=== PATIENT | male | born 1950 | race African-American/Black ===

== ENCOUNTER 2021-09-04 13:33 | Inpatient (IN) | payer MEDICAID ==
[~2021-09-04] VITALS: Ht 172.7 cm; Wt 69.0 kg
[2021-09-04] MEDS ORDERED: LORAZEPAM 2MG/ML CPJ IV ONE (14:15)
[2021-09-04 14:36] LABS: BASOPHILS % 0.4 % (0.0-2.0); HEMATOCRIT. 31.8 % (42.0-52.0); HEMOGLOBIN. 10.4 g/dL (14.0-18.0); LYMPHOCYTES % 15.8 % (20.0-50.0); MEAN CORPUSCULAR HEMOGLOBIN 26.6 pg (28.0-32.0); MEAN PLATELET VOLUME 8.4 fl (7.4-10.4); MONOCYTES % 10.4 % (2.0-8.0); NEUTROPHILS % 73.4 % (40.0-76.0); PLATELET 135 x1000/uL (130-400); RED BLOOD CELL COUNT 3.92 mill/uL (4.7-6.1); RED CELL DISTRIBUTION WIDTH 17.5 % (11.6-14.6)
[2021-09-04 14:41] LABS: CHLORIDE 105 mEq/L (98-107)
[2021-09-04 14:51] LABS: ETHANOL BLOOD < 10 mg/dL
[2021-09-04 15:31] LABS: CLARITY URINE CLEAR (CLEAR); COLOR URINE DARK YELLOW (YELLOW); KETONES URINE NEGATIVE (NEGATIVE); LEUKOCYTE ESTERASE URINE NEGATIVE (NEGATIVE); NITRITE URINE NEGATIVE (NEGATIVE); OCCULT BLOOD URINE NEGATIVE (NEGATIVE); PROTEIN URINE TRACE (NEGATIVE); SPECIFIC GRAVITY URINE 1.012 (1.005-1.030)
[2021-09-04] MEDS ORDERED: SODIUM CHLORIDE 0.9% 1,000 ML IV ONE ×2 (15:45→18:30)
[2021-09-04] MEDS ORDERED: LACTULOSE 20G/30ML UDC PO ONE (15:45)
[2021-09-04 15:50] LABS: *AMPHETAMINES SCREEN URINE NEGATIVE (NEGATIVE); *BARBITURATES SCREEN URINE NEGATIVE (NEGATIVE); *BENZODIAZEPINES SCREEN URINE NEGATIVE (NEGATIVE); *COCAINE SCREEN URINE NEGATIVE (NEGATIVE); CANNABINOID URINE SCREEN NEGATIVE (NEGATIVE); METHADONE URINE SCREEN NEGATIVE (NEGATIVE); OPIATES URINE SCREEN PRESUMTIVE POSITIVE (NEGATIVE); PHENCYCLIDINE URINE SCREEN NEGATIVE (NEGATIVE)
[2021-09-04] MEDS ORDERED: LORAZEPAM 2MG/ML CPJ IV PRN (18:30)
[2021-09-04] MEDS ORDERED: VANCOMYCIN 1G PREMIX 200 ML IV ONE (18:30)
[2021-09-04] MEDS ORDERED: PIPERACILLIN/TAZ 3.375G PREMIX 50 ML IV ONE (18:30)
[2021-09-04] MEDS ORDERED: HYDROCODONE/ACETAMINOPHEN 5/325MG TABLET PO PRN (20:00)
[2021-09-04] MEDS ORDERED: LORAZEPAM 0.5MG TABLET PO PRN (20:00)
[2021-09-04] MEDS ORDERED: ACETAMINOPHEN 325MG TABLET PO PRN ×2 (20:00)
[2021-09-04] MEDS ORDERED: POTASSIUM CHLORIDE 20MEQ/PACKET PO NR (20:00)
[2021-09-04] MEDS ORDERED: CLONIDINE 0.1MG TABLET PO PRN (20:00)
[2021-09-04] MEDS ORDERED: IPRATROPIUM/ALBUTEROL 0.5-3(2.5)MG/3ML NEB HHN PRN (20:00)
[2021-09-04] MEDS ORDERED: ONDANSETRON HCL 4MG/2ML INJ IV PRN (20:00)
[2021-09-04] MEDS ORDERED: DOCUSATE SODIUM 100MG CAPSULE PO PRN (20:00)
[2021-09-04 20:36] LABS: HEPATITIS B SURFACE ANTIGEN NEGATIVE
[2021-09-04] MEDS ORDERED: LACTULOSE 300 ML in WATER FOR IRRIGATION,STERILE 700 ML IR NR (21:00)
[2021-09-04 22:00] VITALS: BP 151/89
[2021-09-04] MEDS ORDERED: NALOXONE HCL 0.4MG/ML VIAL IV PRN (22:45)
[2021-09-04] MEDS: SODIUM CHLORIDE 0.9% 1,000 ML IV SCH (23:29)
[2021-09-04] MEDS: LACTULOSE 20G/30ML UDC PO SCH (23:30)
[2021-09-05] VITALS: BP 157/84
[2021-09-05 04:00] VITALS: BP 155/89
[2021-09-05] MEDS: SODIUM CHLORIDE 0.9% 1,000 ML IV SCH ×2 (06:00→16:00)
[2021-09-05] MEDS: LACTULOSE 20G/30ML UDC PO SCH (06:45)
[2021-09-05 08:00] VITALS: BP 179/100
[2021-09-05 09:02] LABS: BASOPHILS % 0.7 % (0.0-2.0); EOSINOPHILS % 0.2 % (0.0-5.0); HEMATOCRIT. 35.2 % (42.0-52.0); HEMOGLOBIN. 11.3 g/dL (14.0-18.0); LYMPHOCYTES % 16.5 % (20.0-50.0); MEAN CORPUSCULAR HEMOGLOBIN 26.4 pg (28.0-32.0); MEAN CORPUSCULAR VOLUME 82.2 fL (80.0-94.0); MEAN PLATELET VOLUME 8.1 fl (7.4-10.4); MONOCYTES % 8.7 % (2.0-8.0); NEUTROPHILS % 73.9 % (40.0-76.0); PLATELET 106 x1000/uL (130-400); RED BLOOD CELL COUNT 4.28 mill/uL (4.7-6.1); RED CELL DISTRIBUTION WIDTH 17.8 % (11.6-14.6)
[2021-09-05 09:08] LABS: CHLORIDE 112 mEq/L (98-107)
[2021-09-05 12:00] VITALS: BP 152/99
[2021-09-05 16:00] VITALS: BP 161/100
[2021-09-05] MEDS ORDERED: LACTULOSE 300 ML in WATER FOR IRRIGATION,STERILE 700 ML IR SCH ×2 (17:30→19:00)
[2021-09-05] MEDS: METOCLOPRAMIDE HCL 10MG/2ML VIAL IV SCH (18:35)
[2021-09-05 19:35] LABS: INR 1.3; PROTHROMBIN TIME 13.5 sec (9.6-11.0)
[2021-09-05 20:00] VITALS: BP 149/94
[2021-09-06] VITALS (7 sets, daily range): BP systolic 155–187; BP diastolic 72–87
[2021-09-06] MEDS: SODIUM CHLORIDE 0.9% 1,000 ML IV SCH ×3 (00:52→20:00)
[2021-09-06] MEDS: METOCLOPRAMIDE HCL 10MG/2ML VIAL IV SCH ×5 (00:52→23:40)
[2021-09-06 06:23] LABS: INR 1.3
[2021-09-06 06:26] LABS: BASOPHILS % 0.2 % (0.0-2.0); EOSINOPHILS % 0.1 % (0.0-5.0); HEMATOCRIT. 34.6 % (42.0-52.0); HEMOGLOBIN. 11.6 g/dL (14.0-18.0); LYMPHOCYTES % 12.9 % (20.0-50.0); MEAN CORPUSCULAR HEMOGLOBIN 27.4 pg (28.0-32.0); MEAN CORPUSCULAR VOLUME 81.9 fL (80.0-94.0); MEAN PLATELET VOLUME 7.9 fl (7.4-10.4); MONOCYTES % 5.9 % (2.0-8.0); NEUTROPHILS % 80.9 % (40.0-76.0); PLATELET 138 x1000/uL (130-400); RED BLOOD CELL COUNT 4.22 mill/uL (4.7-6.1)
[2021-09-06 06:30] LABS: CHLORIDE 109 mEq/L (98-107)
[2021-09-06] MEDS ORDERED: POTASSIUM CHLORIDE INJ 40 MEQ in DEXT 5% WATER 250 ML IV ONE (08:45)
[2021-09-06] MEDS: KCL 20MEQ/100ML PREMIX 100 ML IV SCH ×4 (10:36→23:39)
[2021-09-06] MEDS: LACTULOSE 20G/30ML UDC PO SCH ×2 (10:37→18:07)
[2021-09-06] MEDS ORDERED: POTASSIUM CHLORIDE 20MEQ/PACKET PO SCH (13:00)
[2021-09-06] MEDS: HYDRALAZINE 20MG/ML VIAL IV PRN (15:20)
[2021-09-06] MEDS: RIFAXIMIN 550 MG TABLET PO SCH (20:05)
[2021-09-07] VITALS: BP 148/79
[2021-09-07] MEDS: LACTULOSE 20G/30ML UDC PO SCH ×4 (03:00→17:39)
[2021-09-07 04:00] VITALS: BP 172/73
[2021-09-07] MEDS: METOCLOPRAMIDE HCL 10MG/2ML VIAL IV SCH ×3 (05:10→16:32)
[2021-09-07] MEDS: HYDRALAZINE 20MG/ML VIAL IV PRN ×3 (05:11→22:23)
[2021-09-07 07:47] LABS: BASOPHILS % 0.3 % (0.0-2.0); EOSINOPHILS % 0.2 % (0.0-5.0); HEMATOCRIT. 33.2 % (42.0-52.0); LYMPHOCYTES % 22.2 % (20.0-50.0); MEAN CORPUSCULAR HEMOGLOBIN 26.7 pg (28.0-32.0); MEAN CORPUSCULAR VOLUME 80.1 fL (80.0-94.0); MEAN PLATELET VOLUME 7.6 fl (7.4-10.4); MONOCYTES % 7.6 % (2.0-8.0); NEUTROPHILS % 69.7 % (40.0-76.0); PLATELET 134 x1000/uL (130-400); RED BLOOD CELL COUNT 4.14 mill/uL (4.7-6.1); RED CELL DISTRIBUTION WIDTH 17.9 % (11.6-14.6)
[2021-09-07 07:53] LABS: CHLORIDE 112 mEq/L (98-107)
[2021-09-07 07:54] LABS: INR 1.4; PROTHROMBIN TIME 14.7 sec (9.6-11.0)
[2021-09-07 07:58] VITALS: BP 178/83
[2021-09-07] MEDS: RIFAXIMIN 550 MG TABLET PO SCH ×2 (08:23→22:22)
[2021-09-07] MEDS: SODIUM CHLORIDE 0.9% 1,000 ML IV SCH ×2 (08:23→16:33)
[2021-09-07] MEDS ORDERED: POTASSIUM CHLORIDE INJ 40 MEQ in DEXT 5% WATER 250 ML IV ONE (09:45)
[2021-09-07] MEDS ORDERED: POTASSIUM CHLORIDE 20MEQ/PACKET PO NR (10:00)
[2021-09-07] MEDS: KCL 20MEQ/100ML X 2 FOR TOTAL KCL 40MEQ/200ML IV SCH ×2 (10:52→12:47)
[2021-09-07 11:44] VITALS: BP 167/86
[2021-09-07] MEDS: CLONIDINE 0.1MG TABLET PO PRN (11:51)
[2021-09-07 15:31] VITALS: BP 154/70
[2021-09-07 20:00] VITALS: BP 187/93
[2021-09-07] MEDS: PROPRANOLOL HCL 10MG TABLET PO SCH (22:22)
[2021-09-08] VITALS (7 sets, daily range): BP systolic 152–186; BP diastolic 82–93
[2021-09-08] MEDS: METOCLOPRAMIDE HCL 10MG/2ML VIAL IV SCH ×4 (00:56→16:40)
[2021-09-08] MEDS: LACTULOSE 20G/30ML UDC PO SCH ×2 (03:00→08:21)
[2021-09-08] MEDS: SODIUM CHLORIDE 0.9% 1,000 ML IV SCH (07:08)
[2021-09-08 08:20] LABS: INR 1.6; PROTHROMBIN TIME 16.9 sec (9.6-11.0)
[2021-09-08] MEDS: PROPRANOLOL HCL 10MG TABLET PO SCH ×2 (08:21→22:21)
[2021-09-08] MEDS: RIFAXIMIN 550 MG TABLET PO SCH ×2 (08:21→22:22)
[2021-09-08 08:30] LABS: BASOPHILS % 0.2 % (0.0-2.0); EOSINOPHILS % 1.1 % (0.0-5.0); HEMATOCRIT. 29.2 % (42.0-52.0); HEMOGLOBIN. 9.8 g/dL (14.0-18.0); LYMPHOCYTES % 25.1 % (20.0-50.0); MEAN CORPUSCULAR HEMOGLOBIN 27.2 pg (28.0-32.0); MEAN CORPUSCULAR VOLUME 81.2 fL (80.0-94.0); MEAN PLATELET VOLUME 7.5 fl (7.4-10.4); MONOCYTES % 9.7 % (2.0-8.0); NEUTROPHILS % 63.9 % (40.0-76.0); PLATELET 100 x1000/uL (130-400); RED CELL DISTRIBUTION WIDTH 18.1 % (11.6-14.6)
[2021-09-08 09:07] LABS: CHLORIDE 120 mEq/L (98-107)
[2021-09-08] MEDS ORDERED: POTASSIUM CHLORIDE INJ 40 MEQ in DEXT 5% WATER 250 ML IV ONE (09:45)
[2021-09-08] MEDS ORDERED: POTASSIUM CHLORIDE 20MEQ/PACKET PO NR (09:45)
[2021-09-08] MEDS: KCL 20MEQ/100ML X 2 FOR TOTAL KCL 40MEQ/200ML IV SCH ×2 (10:51→12:30)
[2021-09-08] MEDS: HYDRALAZINE 20MG/ML VIAL IV PRN (11:28)
[2021-09-08] MEDS: SODIUM CHL 0.45% + KCL 20MEQ/L 1,000 ML IV SCH ×2 (14:16→22:22)
[2021-09-08] MEDS ORDERED: POTASSIUM CHLORIDE 20MEQ TABLET SR PO SCH (21:00)
[2021-09-08] MEDS: CLONIDINE 0.1MG TABLET PO PRN (22:23)
[2021-09-09] VITALS: BP 158/82
[2021-09-09] MEDS: METOCLOPRAMIDE HCL 10MG/2ML VIAL IV SCH ×4 (00:38→16:21)
[2021-09-09 04:00] VITALS: BP 137/67
[2021-09-09 07:54] VITALS: BP 165/89
[2021-09-09 07:57] LABS: BASOPHILS % 0.4 % (0.0-2.0); EOSINOPHILS % 0.9 % (0.0-5.0); HEMATOCRIT. 34.4 % (42.0-52.0); HEMOGLOBIN. 11.4 g/dL (14.0-18.0); LYMPHOCYTES % 29.8 % (20.0-50.0); MEAN CORPUSCULAR HEMOGLOBIN 26.8 pg (28.0-32.0); MEAN CORPUSCULAR VOLUME 80.8 fL (80.0-94.0); MEAN PLATELET VOLUME 7.1 fl (7.4-10.4); MONOCYTES % 7.6 % (2.0-8.0); NEUTROPHILS % 61.3 % (40.0-76.0); PLATELET 110 x1000/uL (130-400); RED BLOOD CELL COUNT 4.26 mill/uL (4.7-6.1); RED CELL DISTRIBUTION WIDTH 18.3 % (11.6-14.6)
[2021-09-09 07:59] LABS: INR 1.5; PROTHROMBIN TIME 15.6 sec (9.6-11.0)
[2021-09-09 08:06] LABS: CHLORIDE 110 mEq/L (98-107)
[2021-09-09 08:13] LABS: PHOSPHORUS 2.4 mg/dL (2.5-4.9)
[2021-09-09] MEDS: CLONIDINE 0.1MG TABLET PO PRN (08:20)
[2021-09-09] MEDS: RIFAXIMIN 550 MG TABLET PO SCH ×2 (08:20→21:59)
[2021-09-09] MEDS: PROPRANOLOL HCL 10MG TABLET PO SCH ×2 (08:20→21:59)
[2021-09-09] MEDS: SODIUM CHLORIDE 0.45% 1,000 ML IV SCH ×2 (10:28→23:05)
[2021-09-09] MEDS ORDERED: MAGNESIUM 4 G PREMIX 100 ML IV NR (11:00)
[2021-09-09] MEDS ORDERED: POTASSIUM PHOS,M-BASIC-D-BASIC 30 MMOL in DEXT 5% WATER 500 ML IV NR (11:00)
[2021-09-09 11:27] VITALS: BP 155/84
[2021-09-09 15:29] VITALS: BP 165/94
[2021-09-09] MEDS: HYDRALAZINE 20MG/ML VIAL IV PRN (16:20)
[2021-09-09] MEDS: ZINC OXIDE 20% OINT 30GM TOP SCH (18:10)
[2021-09-09 20:00] VITALS: BP 148/69
[2021-09-09] MEDS: SODIUM CHL 0.45% + KCL 20MEQ/L 1,000 ML IV SCH (21:57)
[2021-09-10] VITALS (8 sets, daily range): BP systolic 129–183; BP diastolic 64–91
[2021-09-10] MEDS: METOCLOPRAMIDE HCL 10MG/2ML VIAL IV SCH ×4 (00:47→17:46)
[2021-09-10 08:41] LABS: CHLORIDE 105 mEq/L (98-107)
[2021-09-10 08:49] LABS: PHOSPHORUS 2.9 mg/dL (2.5-4.9)
[2021-09-10 08:51] LABS: BASOPHILS % 0.3 % (0.0-2.0); EOSINOPHILS % 0.6 % (0.0-5.0); HEMATOCRIT. 35.3 % (42.0-52.0); HEMOGLOBIN. 11.6 g/dL (14.0-18.0); LYMPHOCYTES % 22.5 % (20.0-50.0); MEAN CORPUSCULAR HEMOGLOBIN 26.5 pg (28.0-32.0); MEAN CORPUSCULAR VOLUME 80.8 fL (80.0-94.0); MEAN PLATELET VOLUME 7.4 fl (7.4-10.4); MONOCYTES % 7.7 % (2.0-8.0); NEUTROPHILS % 68.9 % (40.0-76.0); PLATELET 113 x1000/uL (130-400); RED BLOOD CELL COUNT 4.37 mill/uL (4.7-6.1); RED CELL DISTRIBUTION WIDTH 18.3 % (11.6-14.6)
[2021-09-10] MEDS: RIFAXIMIN 550 MG TABLET PO SCH ×2 (09:01→21:47)
[2021-09-10] MEDS: PROPRANOLOL HCL 10MG TABLET PO SCH ×2 (09:02→21:00)
[2021-09-10] MEDS: ZINC OXIDE 20% OINT 30GM TOP SCH ×2 (09:03→17:47)
[2021-09-10 09:11] LABS: INR 1.4
[2021-09-10] MEDS: SODIUM CHLORIDE 0.9% 1,000 ML IV SCH (11:52)
[2021-09-10] MEDS: CLONIDINE 0.1MG TABLET PO PRN (11:58)
[2021-09-10 14:34] LABS: AMYLASE 199 IU/L (25-115)
[2021-09-10] MEDS: HYDRALAZINE 20MG/ML VIAL IV PRN (17:47)
[2021-09-11] VITALS: BP 141/62
[2021-09-11] MEDS: METOCLOPRAMIDE HCL 10MG/2ML VIAL IV SCH ×4 (00:20→16:57)
[2021-09-11 04:00] VITALS: BP 163/79
[2021-09-11] MEDS: SODIUM CHLORIDE 0.9% 1,000 ML IV SCH (06:32)
[2021-09-11 06:45] LABS: BASOPHILS % 0.2 % (0.0-2.0); EOSINOPHILS % 1.2 % (0.0-5.0); HEMATOCRIT. 33.5 % (42.0-52.0); HEMOGLOBIN. 11.2 g/dL (14.0-18.0); LYMPHOCYTES % 20.3 % (20.0-50.0); MEAN CORPUSCULAR HEMOGLOBIN 26.9 pg (28.0-32.0); MEAN CORPUSCULAR VOLUME 80.4 fL (80.0-94.0); MEAN PLATELET VOLUME 7.7 fl (7.4-10.4); MONOCYTES % 9.7 % (2.0-8.0); NEUTROPHILS % 68.6 % (40.0-76.0); PLATELET 112 x1000/uL (130-400); RED BLOOD CELL COUNT 4.16 mill/uL (4.7-6.1); RED CELL DISTRIBUTION WIDTH 17.8 % (11.6-14.6)
[2021-09-11 06:54] LABS: CHLORIDE 105 mEq/L (98-107)
[2021-09-11 08:00] VITALS: BP 168/84
[2021-09-11] MEDS ORDERED: POTASSIUM CHLORIDE 20MEQ/PACKET PO NR (09:00)
[2021-09-11] MEDS: PROPRANOLOL HCL 10MG TABLET PO SCH (09:00)
[2021-09-11] MEDS: RIFAXIMIN 550 MG TABLET PO SCH (09:27)
[2021-09-11] MEDS: HYDRALAZINE 20MG/ML VIAL IV PRN (09:28)
[2021-09-11] MEDS ORDERED: LACT10SO3 MT (10:19)
[2021-09-11] MEDS ORDERED: PROP10TA10 PO (10:19)
[2021-09-11 12:00] VITALS: BP 144/90
[2021-09-11 16:00] VITALS: BP 152/79
[2021-09-11 16:14] VITALS: BP 144/90
[2021-09-11] MEDS ORDERED: CALCIUM CARBONATE 500MG TABLET CHEW PO NR (17:00)
[2021-09-11] MEDS: ZINC OXIDE 20% OINT 30GM TOP SCH (17:10)
== END 2021-09-11 19:05 | disposition home or self-care (01) | DRG 279 ==
LOC: ER 13:33 → EDBEDREQ 15:37 → 8WST 19:06 → EDBEDREQ 19:12 → EDBEDREQTM 19:12 → ENRESERV 20:01
PROVIDERS: ADMIT Internal Medicine; ATTEND Internal Medicine
DX: K72.90 Hepatic failure, unspecified without coma (principal); E43 Unspecified severe protein-calorie malnutrition; K85.90 Acute pancreatitis without necrosis or infection, unspecified; D69.6 Thrombocytopenia, unspecified; D68.9 Coagulation defect, unspecified; N17.9 Acute kidney failure, unspecified; C25.9 Malignant neoplasm of pancreas, unspecified; E87.0 Hyperosmolality and hypernatremia; E83.51 Hypocalcemia; K56.7 Ileus, unspecified; B19.20 Unspecified viral hepatitis C without hepatic coma; K74.60 Unspecified cirrhosis of liver; I10 Essential (primary) hypertension; D64.9 Anemia, unspecified; D72.821 Monocytosis (symptomatic); E87.6 Hypokalemia; E88.09 Other disorders of plasma-protein metabolism, not elsewhere classified; K76.6 Portal hypertension; E86.9 Volume depletion, unspecified; N28.1 Cyst of kidney, acquired; Z90.49 Acquired absence of other specified parts of digestive tract; Z82.49 Family history of ischemic heart disease and other diseases of the circulatory system; Z68.23 Body mass index [BMI] 23.0-23.9, adult
CPT/HCPCS: 36415; 71045; 74018; 74177; 76700; 80048; 80053; 80076; 80305; 80320; 81003; 82140; 82150; 82330; 83605; 83735; 84100; 84132; 84145; 85025; 86301; 86705; 86709; 86803; 87340; 87493; 93005; 97162; 99291; J0360; J2060; J2543; J2765; J3370; J3475; J3480; J3490; J7030; J7060; G0480

== ENCOUNTER 2023-12-16 18:42 | Inpatient (IN) | payer MEDICARE, MEDICAID ==
[~2023-12-16] VITALS: Ht 180.3 cm; Wt 67.6 kg
[~2023-12-16 18:42] MED LIST: LACT10SO3 MT; PROP10TA10 PO
[2023-12-16 18:45] VITALS: O2SAT 97
[2023-12-16] MEDS: OLANZAPINE 10 MG/VIAL IM ONE (19:18)
[2023-12-16] MEDS: LORAZEPAM 2MG/ML INJ IM ONE (19:21)
[2023-12-16] MEDS: SODIUM CHLORIDE 0.9% 1,000 ML IV ONE (20:45)
[2023-12-16 20:51] LABS: CARBON DIOXIDE 23 mEq/L (21-32); CHLORIDE 112 mEq/L (98-107); SODIUM 141 mEq/L (136-145)
[2023-12-16 20:52] LABS: CALCIUM 8.1 mg/dL (8.7-10.4)
[2023-12-16 20:55] LABS: BASOPHILS % 0.6 % (0.0-2.0); DIFFERENTIAL COMMENT 0; EOSINOPHILS % 0.3 % (0.0-5.0); HEMATOCRIT. 23.6 % (42.0-52.0); HEMOGLOBIN. 7.1 g/dL (14.0-18.0); LYMPHOCYTES % 19.3 % (20.0-50.0); MEAN CORPUSCULAR HEMOGLOBIN 21.5 pg (28.0-32.0); MEAN CORPUSCULAR VOLUME 71.5 fL (80.0-94.0); MEAN PLATELET VOLUME 8.5 fl (7.4-10.4); MONOCYTES % 8.5 % (2.0-8.0); NEUTROPHILS % 71.3 % (40.0-76.0); PLATELET 70 x1000/uL (130-400); WHITE BLOOD COUNT 5.4 x1000/uL (4.5-11.0)
[2023-12-16 20:56] LABS: CREATININE 1.6 mg/dL (0.6-1.3)
[2023-12-16 20:57] LABS: AMMONIA 78 uMol/L (<32); GLUCOSE 111 mg/dL (70-105); INR 1.2; PROTHROMBIN TIME 13.5 sec (9.6-11.0); UREA NITROGEN BLOOD 15 mg/dL (9-23)
[2023-12-16 20:58] LABS: ALANINE AMINOTRANSFERASE 31 IU/L (10-49); ALBUMIN 2.9 g/dL (3.2-4.8); ASPARTATE AMINOTRANSFERASE 53 IU/L (<34); LACTIC ACID 2.6 mmol/L (0.4-2.0); TROPONIN I HIGH SENSITIVITY 13 ng/L (3.0-53)
[2023-12-16 20:59] LABS: BILIRUBIN DIRECT 0.9 mg/dL (<=3.0); BILIRUBIN TOTAL 1.7 mg/dL (0.1-1.0); CREATINE KINASE 442 IU/L (46-171); ETHANOL BLOOD < 10 mg/dL (<10); PROTEIN TOTAL 7.7 g/dL (6.0-8.3)
[2023-12-16] MEDS ORDERED: ACETAMINOPHEN 325MG TABLET PO PRN ×2 (22:00)
[2023-12-16] MEDS ORDERED: DOCUSATE SODIUM 100MG CAPSULE PO PRN (22:00)
[2023-12-16] MEDS ORDERED: GUAIFENESIN 200MG/10ML SUGAR FREE UDC PO PRN (22:00)
[2023-12-16] MEDS ORDERED: ONDANSETRON HCL 4MG/2ML INJ IV PRN (22:00)
[2023-12-16] MEDS ORDERED: CLONIDINE 0.1MG TABLET PO PRN (22:00)
[2023-12-16] MEDS ORDERED: IPRATROPIUM/ALBUTEROL 0.5-3(2.5)MG/3ML NEB HHN PRN (22:00)
[2023-12-16] MEDS ORDERED: MAGNESIUM/ALUMINUM HYDROXIDE/SIMETHICONE 30ML UDC PO PRN (22:00)
[2023-12-16] MEDS: PIPERACILLIN/TAZO 3.375G/50ML 50 ML IV ONE (22:01)
[2023-12-16] MEDS: SODIUM CHLORIDE 0.9% 1000ML BAG (SEPSIS BOLUS) IV ONE (22:26)
[2023-12-16] MEDS: PROPRANOLOL HCL 10MG TABLET PO SCH (22:30)
[2023-12-16] MEDS: PANTOPRAZOLE SODIUM 40 MG/VIAL IV SCH (23:56)
[2023-12-17] MEDS: LORAZEPAM 2MG/ML INJ IV PRN (01:30)
[2023-12-17 01:44] LABS: CLARITY URINE CLEAR (CLEAR); COLOR URINE YELLOW (YELLOW); GLUCOSE URINE NEGATIVE (NEGATIVE); KETONES URINE NEGATIVE (NEGATIVE); LEUKOCYTE ESTERASE URINE NEGATIVE (NEGATIVE); NITRITE URINE NEGATIVE (NEGATIVE); OCCULT BLOOD URINE NEGATIVE (NEGATIVE); PROTEIN URINE NEGATIVE (NEGATIVE); SPECIFIC GRAVITY URINE 1.009 (1.005-1.030)
[2023-12-17] MEDS: DEXT 5%/0.45% NACL 1000ML 1,000 ML IV SCH (02:00)
[2023-12-17 02:10] LABS: *AMPHETAMINES SCREEN URINE NEGATIVE (NEGATIVE); *BARBITURATES SCREEN URINE NEGATIVE (NEGATIVE); *BENZODIAZEPINES SCREEN URINE NEGATIVE (NEGATIVE); *COCAINE SCREEN URINE NEGATIVE (NEGATIVE); CANNABINOID URINE SCREEN NEGATIVE (NEGATIVE); ECSTASY MDMA SCREEN URINE NEGATIVE (NEGATIVE); METHADONE URINE SCREEN NEGATIVE (NEGATIVE); OPIATES URINE SCREEN PRESUMPTIVE POSITIVE (NEGATIVE); PHENCYCLIDINE URINE SCREEN NEGATIVE (NEGATIVE)
[2023-12-17 06:47] LABS: CARBON DIOXIDE 23 mEq/L (21-32); CHLORIDE 115 mEq/L (98-107); POTASSIUM 3.7 mEq/L (3.5-5.1); SODIUM 142 mEq/L (136-145)
[2023-12-17 06:48] LABS: CALCIUM 7.5 mg/dL (8.7-10.4)
[2023-12-17 06:52] LABS: CREATININE 1.4 mg/dL (0.6-1.3); GLUCOSE 89 mg/dL (70-105); IRON 19 ug/dL (65-175)
[2023-12-17 06:53] LABS: ALANINE AMINOTRANSFERASE 27 IU/L (10-49); ALBUMIN 2.6 g/dL (3.2-4.8); ASPARTATE AMINOTRANSFERASE 50 IU/L (<34); BILIRUBIN DIRECT 0.8 mg/dL (<=3.0); TRIGLYCERIDE 55 mg/dL (0-150); UREA NITROGEN BLOOD 14 mg/dL (9-23)
[2023-12-17 06:54] LABS: ALBUMIN 2.6 g/dL (3.2-4.8); BILIRUBIN TOTAL 1.4 mg/dL (0.1-1.0); CHOLESTEROL 78 mg/dL (<200); CREATINE KINASE 474 IU/L (46-171); LDL CHOLESTEROL 22 mg/dL (5-100); PROTEIN TOTAL 6.8 g/dL (6.0-8.3)
[2023-12-17 06:55] LABS: HDL CHOLESTEROL 33 mg/dL (>55); PHOSPHORUS 3.1 mg/dL (2.5-4.9); TOTAL IRON BINDING CAPACITY 295 ug/dl (250-425)
[2023-12-17 06:57] LABS: FOLIC ACID (FOLATE) SERUM 11.54 ng/mL (>5.38); THYROID STIMULATING HORMONE 6.25 uIU/mL (0.55-4.78); VITAMIN B12 SERUM 988 pg/mL (211-911)
[2023-12-17] MEDS: LACTULOSE 20G/30ML UDC PO SCH (07:06)
[2023-12-17 07:21] LABS: BASOPHILS % 0.7 % (0.0-2.0); DIFFERENTIAL COMMENT 0; EOSINOPHILS % 0.5 % (0.0-5.0); LYMPHOCYTES % 25.9 % (20.0-50.0); MEAN CORPUSCULAR HEMOGLOBIN 21.9 pg (28.0-32.0); MEAN CORPUSCULAR HGB CONC 30.3 g/dL (31.0-37.0); MEAN CORPUSCULAR VOLUME 72.1 fL (80.0-94.0); MEAN PLATELET VOLUME 8.6 fl (7.4-10.4); MONOCYTES % 12.1 % (2.0-8.0); NEUTROPHILS % 60.8 % (40.0-76.0); PLATELET 65 x1000/uL (130-400); RED BLOOD CELL COUNT 2.94 mill/uL (4.7-6.1); RED CELL DISTRIBUTION WIDTH 19.7 % (11.6-14.6)
[2023-12-17 07:28] LABS: HEMOGLOBIN. 6.4 g/dL (14.0-18.0)
[2023-12-17 07:29] LABS: HEMATOCRIT. 21.2 % (42.0-52.0)
[2023-12-17] MEDS: SPIRONOLACTONE 50MG TABLET PO SCH (09:00)
[2023-12-17] MEDS: RIFAXIMIN 550 MG TABLET PO SCH (09:00)
[2023-12-17] MEDS ORDERED: DIPHENHYDRAMINE 25MG CAPSULE PO NR (14:28)
[2023-12-17] MEDS: MAGNESIUM 1 G PREMIX 100 ML IV NR (14:41)
[2023-12-17 16:39] LABS: CREATINE KINASE 570 IU/L (46-171)
[2023-12-17 16:57] LABS: HEMATOCRIT 24.2 % (42.0-52.0)
[2023-12-17 18:54] VITALS: BP 154/81; PULSE 78; RESP 20; TEMP 38.11416; O2SAT 96
[2023-12-17 20:00] VITALS: BP 134/77; PULSE 85; RESP 19; TEMP 36.5848
[2023-12-18] VITALS (9 sets, daily range): BP systolic 130–157; BP diastolic 64–81; PULSE 60–87; RESP 18–20; TEMP 36.22512–36.9474; O2SAT 96–100
[2023-12-18 07:05] LABS: BASOPHILS % 0.6 % (0.0-2.0); DIFFERENTIAL COMMENT 0; EOSINOPHILS % 0.5 % (0.0-5.0); HEMATOCRIT. 24.7 % (42.0-52.0); HEMOGLOBIN. 7.6 g/dL (14.0-18.0); LYMPHOCYTES % 24.2 % (20.0-50.0); MEAN CORPUSCULAR HEMOGLOBIN 22.5 pg (28.0-32.0); MEAN CORPUSCULAR HGB CONC 30.6 g/dL (31.0-37.0); MEAN CORPUSCULAR VOLUME 73.6 fL (80.0-94.0); MEAN PLATELET VOLUME 8.3 fl (7.4-10.4); MONOCYTES % 9.8 % (2.0-8.0); NEUTROPHILS % 64.9 % (40.0-76.0); PLATELET 70 x1000/uL (130-400); RED BLOOD CELL COUNT 3.36 mill/uL (4.7-6.1); RED CELL DISTRIBUTION WIDTH 20.6 % (11.6-14.6)
[2023-12-18 07:18] LABS: AMMONIA 59 uMol/L (<32)
[2023-12-18 07:19] LABS: PHOSPHORUS 3.2 mg/dL (2.5-4.9)
[2023-12-18] MEDS: OCTREOTIDE 1,000 MCG in SODIUM CHLORIDE 0.9% 98 ML IV SCH ×2 (12:30→21:55)
[2023-12-18] MEDS ORDERED: LIDOCAINE HCL 1% 10 MG/ML 10ML VIAL ONE (13:41)
[2023-12-18] MEDS: BISACODYL 10MG SUPP PR NR (18:32)
[2023-12-18 18:53] LABS: CHLORIDE 115 mEq/L (98-107); SODIUM 141 mEq/L (136-145)
[2023-12-18 18:54] LABS: CARBON DIOXIDE 23 mEq/L (21-32)
[2023-12-18 18:55] LABS: CALCIUM 8.1 mg/dL (8.7-10.4)
[2023-12-18 18:59] LABS: CREATININE 1.2 mg/dL (0.6-1.3); GLUCOSE 84 mg/dL (70-105); UREA NITROGEN BLOOD 11 mg/dL (9-23)
[2023-12-19] VITALS: BP 143/71; PULSE 60; RESP 20; TEMP 36.55848; O2SAT 97
[2023-12-19 04:00] VITALS: BP 143/68; PULSE 59; RESP 20; TEMP 36.55848; O2SAT 98
[2023-12-19 06:43] LABS: BASOPHILS % 0.5 % (0.0-2.0); DIFFERENTIAL COMMENT 0; EOSINOPHILS % 0.1 % (0.0-5.0); HEMOGLOBIN. 8.3 g/dL (14.0-18.0); LYMPHOCYTES % 19.6 % (20.0-50.0); MEAN CORPUSCULAR VOLUME 74.3 fL (80.0-94.0); MEAN PLATELET VOLUME 8.6 fl (7.4-10.4); MONOCYTES % 8.2 % (2.0-8.0); NEUTROPHILS % 71.6 % (40.0-76.0); PLATELET 69 x1000/uL (130-400); RED BLOOD CELL COUNT 3.63 mill/uL (4.7-6.1); RED CELL DISTRIBUTION WIDTH 21.5 % (11.6-14.6); WHITE BLOOD COUNT 8.5 x1000/uL (4.5-11.0)
[2023-12-19 06:59] LABS: AMMONIA 49 uMol/L (<32)
[2023-12-19 07:02] LABS: CHLORIDE 115 mEq/L (98-107); POTASSIUM 4.3 mEq/L (3.5-5.1); SODIUM 141 mEq/L (136-145)
[2023-12-19 07:03] LABS: CALCIUM 7.8 mg/dL (8.7-10.4); CARBON DIOXIDE 21 mEq/L (21-32)
[2023-12-19 07:08] LABS: CREATININE 1.2 mg/dL (0.6-1.3); GLUCOSE 116 mg/dL (70-105); UREA NITROGEN BLOOD 14 mg/dL (9-23)
[2023-12-19 07:11] LABS: PHOSPHORUS 3.6 mg/dL (2.5-4.9)
[2023-12-19 08:00] VITALS: BP 153/69; PULSE 56; RESP 18; TEMP 36.33624; O2SAT 98
[2023-12-19 12:00] VITALS: BP 147/71; RESP 18; TEMP 36.33624; O2SAT 97
[2023-12-19 16:00] VITALS: BP 150/77; PULSE 58; RESP 18; TEMP 36.50292; O2SAT 98
[2023-12-19] MEDS: SPIRONOLACTONE 50MG TABLET PO SCH (18:58)
[2023-12-19] MEDS: IRON SUCROSE COMPLEX 100 MG/5 ML ML IV SCH (18:59)
[2023-12-19] MEDS: LACTULOSE 20G/30ML UDC PO NR (18:59)
[2023-12-19 20:00] VITALS: BP 147/81; PULSE 69; RESP 19; TEMP 36.22512; O2SAT 97
[2023-12-20] VITALS: BP 140/69; PULSE 59; RESP 20; TEMP 36.22512; O2SAT 97
[2023-12-20 04:00] VITALS: BP 160/70; PULSE 54; RESP 20; TEMP 36.55848; O2SAT 98
[2023-12-20 08:00] VITALS: BP 147/74; PULSE 59; RESP 20; TEMP 36.9474; O2SAT 98
[2023-12-20 10:37] LABS: HEMATOCRIT 27.8 % (42.0-52.0); HEMOGLOBIN 8.4 g/dL (14.0-18.0); MEAN CORPUSCULAR HEMOGLOBIN 22.9 pg (28.0-32.0); MEAN CORPUSCULAR HGB CONC 30.3 g/dL (31.0-37.0); MEAN CORPUSCULAR VOLUME 75.5 fL (80.0-94.0); PLATELET 64 x1000/uL (130-400); RED BLOOD CELL COUNT 3.68 mill/uL (4.7-6.1); RED CELL DISTRIBUTION WIDTH 21.7 % (11.6-14.6); WHITE BLOOD COUNT 8.9 x1000/uL (4.5-11.0)
[2023-12-20 10:46] LABS: CHLORIDE 113 mEq/L (98-107); POTASSIUM 3.9 mEq/L (3.5-5.1); SODIUM 142 mEq/L (136-145)
[2023-12-20 10:47] LABS: CARBON DIOXIDE 22 mEq/L (21-32)
[2023-12-20 10:52] LABS: CREATININE 1.2 mg/dL (0.6-1.3); GLUCOSE 98 mg/dL (70-105); UREA NITROGEN BLOOD 17 mg/dL (9-23)
[2023-12-20 10:54] LABS: PHOSPHORUS 3.1 mg/dL (2.5-4.9)
[2023-12-20 12:00] VITALS: BP 137/74; PULSE 62; RESP 18; TEMP 36.6696; O2SAT 97
[2023-12-20 16:00] VITALS: BP 149/74; PULSE 69; RESP 20; TEMP 36.55848; O2SAT 97
[2023-12-20] MEDS: HALOPERIDOL LACTATE 5MG/ML VIAL IM PRN (16:37)
[2023-12-20] MEDS ORDERED: HALOPERIDOL 2MG TABLET PO PRN (17:00)
[2023-12-20 20:00] VITALS: BP 150/84; PULSE 57; RESP 19; TEMP 38.00304; O2SAT 96
[2023-12-21] VITALS (53 sets, daily range): BP systolic 80–122; BP diastolic 43–82; PULSE 50–92; RESP 14–28; TEMP 35.78064–37.16964; O2SAT 93–100
[2023-12-21 04:48] LABS: MEAN CORPUSCULAR HEMOGLOBIN 23.7 pg (28.0-32.0); MEAN CORPUSCULAR HGB CONC 30.8 g/dL (31.0-37.0); MEAN CORPUSCULAR VOLUME 76.8 fL (80.0-94.0); PLATELET 65 x1000/uL (130-400); RED BLOOD CELL COUNT 2.34 mill/uL (4.7-6.1); RED CELL DISTRIBUTION WIDTH 21.5 % (11.6-14.6); WHITE BLOOD COUNT 14.7 x1000/uL (4.5-11.0)
[2023-12-21 04:54] LABS: HEMOGLOBIN 5.5 g/dL (14.0-18.0)
[2023-12-21] MEDS: DEXTROSE 50% WATER 50ML SYRINGE IV ONE (11:02)
[2023-12-21 11:31] LABS: BG BASE EXCESS -11.8 mmol/L (-2.0-3.0); BG CARBOXYHEMOGLOBIN 2.3 % (0.5-1.5); BG DEOXYHEMOGLOBIN 4.9 % (0.0-5.0); BG FRACTION INSPIRED OXYGEN 21; BG METHEMOGLOBIN 0.3 % (0.5-1.5); BG OXYHEMOGLOBIN 92.5 % (94.0-98.0); BG PCO2 30.8 mmHg (35.0-48.0); BG PH 7.275 (7.350-7.450); BG PO2 93.1 mmHg (83.0-108.0); BG SAMPLE SITE RIGHT BRACHIAL; BG TOTAL HEMOGLOBIN 4.7 g/dL (13.5-17.5); BG VENT MODE ROOM AIR
[2023-12-21] MEDS: PANTOPRAZOLE SODIUM 40 MG/VIAL IV SCH (12:37)
[2023-12-21] MEDS: SODIUM CHLORIDE 0.9% 500 ML IV NR (12:38)
[2023-12-21] MEDS ORDERED: PANTOPRAZOLE 80 MG in SODIUM CHLORIDE 0.9% 100 ML IV SCH (13:00)
[2023-12-21 19:54] LABS: AMMONIA 94 uMol/L (<32)
[2023-12-21 19:59] LABS: HEMATOCRIT 34.3 % (42.0-52.0); HEMOGLOBIN 10.7 g/dL (14.0-18.0)
[2023-12-21 22:49] LABS: INR 2.2; PROTHROMBIN TIME 23.5 sec (9.6-11.0)
[2023-12-22] VITALS (54 sets, daily range): BP systolic 57–133; BP diastolic 44–119; PULSE 43–73; RESP 12–29; TEMP 35.8362–36.72516; O2SAT 99–100
[2023-12-22 03:06] LABS: BASOPHILS % 0.1 % (0.0-2.0); HEMATOCRIT. 24.5 % (42.0-52.0); HEMOGLOBIN. 7.8 g/dL (14.0-18.0); LYMPHOCYTES % 24.4 % (20.0-50.0); MEAN CORPUSCULAR HEMOGLOBIN 27.1 pg (28.0-32.0); MEAN CORPUSCULAR HGB CONC 31.7 g/dL (31.0-37.0); MEAN CORPUSCULAR VOLUME 85.5 fL (80.0-94.0); MEAN PLATELET VOLUME 8.9 fl (7.4-10.4); MONOCYTES % 6.6 % (2.0-8.0); NEUTROPHILS % 68.9 % (40.0-76.0); RED BLOOD CELL COUNT 2.86 mill/uL (4.7-6.1); RED CELL DISTRIBUTION WIDTH 18.8 % (11.6-14.6); WHITE BLOOD COUNT 19.2 x1000/uL (4.5-11.0)
[2023-12-22 03:08] LABS: DIFFERENTIAL COMMENT 1
[2023-12-22 03:11] LABS: POTASSIUM 5.7 mEq/L (3.5-5.1)
[2023-12-22 03:12] LABS: CALCIUM 7.1 mg/dL (8.7-10.4)
[2023-12-22 03:18] LABS: AMMONIA 101 uMol/L (<32)
[2023-12-22 03:38] LABS: CREATININE 3.5 mg/dL (0.6-1.3)
[2023-12-22 04:04] LABS: PROTHROMBIN TIME 27.5 sec (9.6-11.0)
[2023-12-22 04:05] LABS: INR 2.7
[2023-12-22] MEDS: SODIUM ZIRCONIUM CYCLOSILICATE 10GM/PACKET PO STA (05:30)
[2023-12-22] MEDS: PHENYLEPHRINE 100 MG in DEXT 5% WATER 240 ML IV PRN (05:32)
[2023-12-22] MEDS: SODIUM BICARBONATE 100 MEQ in DEXTROSE 5% WATER 900 ML IV SCH (06:45)
[2023-12-22] MEDS: SODIUM BICARBONATE 8.4% 50MEQ/50ML SYR IV NR ×2 (06:45→08:39)
[2023-12-22] MEDS ORDERED: SODIUM POLYSTYRENE SULFONATE 15 G/60 ML BOT PR STA (08:13)
[2023-12-22] MEDS: SODIUM ZIRCONIUM CYCLOSILICATE 10GM/PACKET PO NR (08:32)
[2023-12-22] MEDS: DEXTROSE 50% WATER 50ML SYRINGE IV NR (08:40)
[2023-12-22] MEDS: INSULIN REGULAR (HUMULIN R) 1000UNITS/10ML VIAL IV NR (08:41)
[2023-12-22] MEDS: CALCIUM GLUCONATE 1GM PREMIX 50 ML IV NR (10:15)
[2023-12-22 15:28] LABS: HIV 1/2 AB P24AG Negative (Negative)
[2023-12-22 18:58] LABS: HEPATITIS B SURFACE ANTIGEN NEGATIVE
[2023-12-22 18:59] LABS: HEPATITIS C VIR.AB > 11.00 INDEXVAL (0.00-0.80)
[2023-12-22] MEDS: MORPHINE SULFATE 250 MG in DEXT 5% WATER 225 ML IV PRN (22:18)
[2023-12-24 12:04] LABS: PLATELET 46 x1000/uL (130-400)
== END 2023-12-23 01:39 | DRG 279 ==
LOC: ER 18:42 → MICUSO 21:06 → 5WST 12-17 12:32 → 7EST 12-17 17:57 → MICUNO 12-21 13:10
PROVIDERS: ADMIT Internal Medicine; ATTEND Internal Medicine
PROC: 30233N1 Transfusion of Nonautologous Red Blood Cells into Peripheral Vein, Percutaneous Approach (ICD-10-PCS; 2023-12-17)
PROC: 02HV33Z Insertion of Infusion Device into Superior Vena Cava, Percutaneous Approach (ICD-10-PCS; principal; 2023-12-18)
PROC: B548ZZA Ultrasonography of Superior Vena Cava, Guidance (ICD-10-PCS; 2023-12-18)
DX: K72.00 Acute and subacute hepatic failure without coma (principal); N17.0 Acute kidney failure with tubular necrosis; G93.41 Metabolic encephalopathy; I85.01 Esophageal varices with bleeding; E43 Unspecified severe protein-calorie malnutrition; D69.6 Thrombocytopenia, unspecified; E87.0 Hyperosmolality and hypernatremia; K72.10 Chronic hepatic failure without coma; E87.20 Acidosis, unspecified; D62 Acute posthemorrhagic anemia; E83.51 Hypocalcemia; I48.91 Unspecified atrial fibrillation; B19.20 Unspecified viral hepatitis C without hepatic coma; Z66 Do not resuscitate; Z68.20 Body mass index [BMI] 20.0-20.9, adult; I10 Essential (primary) hypertension; R19.5 Other fecal abnormalities; N28.1 Cyst of kidney, acquired; K59.00 Constipation, unspecified; K74.60 Unspecified cirrhosis of liver; R16.1 Splenomegaly, not elsewhere classified; E80.6 Other disorders of bilirubin metabolism; E88.09 Other disorders of plasma-protein metabolism, not elsewhere classified; R73.9 Hyperglycemia, unspecified; M62.82 Rhabdomyolysis; E83.42 Hypomagnesemia; E87.6 Hypokalemia; R18.8 Other ascites; Z51.5 Encounter for palliative care; Z78.1 Physical restraint status; Z79.899 Other long term (current) drug therapy; Z82.49 Family history of ischemic heart disease and other diseases of the circulatory system; Z88.8 Allergy status to other drugs, medicaments and biological substances
CPT/HCPCS: 36415; 36573; 36600; 71045; 74018; 74176; 76705; 76770; 80048; 80061; 80076; 80305; 80320; 81003; 82040; 82140; 82270; 82375; 82378; 82550; 82607; 82728; 82746; 82805; 82962; 83036; 83540; 83550; 83605; 83735; 84100; 84145; 84443; 84484; 85014; 85018; 85025; 85027; 85044; 85379; 86301; 86850; 86900; 86920; 93005; 93970; 99285; C1725; J0610; J1630; J2060; J2270; J2354; J2470; J2543; J3475; J3490; J7030; J7050; J7060; J7070; P9016; G0480